=== PATIENT | male | born 1960 | race Caucasian/White ===

== ENCOUNTER → 2021-03-04 12:05 | Outpatient (CLI) | payer BC, SELFPAY ==
--- NOTE | ~2021-03-04 | MR_ITS ---
EXAMINATION: MR lumbar spine wo/w con EXAM DATE: 03/04/2021 13:52 INDICATION: Paresthesia of skin, Low back pain low back pain. TECHNIQUE: Multi-sequential, multiplanar MR images of the lumbar spine were obtained without contrast . Sagittal T1, T2, T2 fat saturation images. Axial T2 weighted images. Axial T1 weighted sequence. Patient was then injected with 18 mL Multihance intravenous contrast and reimaged. Postcontrast axi al and sagittal T1-weighted fat saturation sequences were obtained. Comparison is made to prior exa mination from 03/04/2021. FINDINGS: There is moderate disc disease L2-3 with 2 to 3 mm retrolisthesis. There is 3-4 mm retrolis thesis L5 on S1 with mild disc disease. Posterior and interbody fusion L3-L5. L4 laminectomies. Proba ble L3 foraminotomies. Mild disc disease at L1-2. The conus medullaris terminates at the T12-L1 level and has normal signal intensity and morphology. Paraspinal soft tissue is unremarkable. There are no areas of abnormal enhancement on the post contrast images. Level by level evaluation: T12-L1: Disc does not extend beyond the endplate margin. Facet arthropathy: Mild. Neural foraminal stenosis: No stenosis. Central canal stenosis: No stenosis. L1-L2: There is a mild diffuse disc bulge. Facet arthropathy: Mild bilateral. Neural foraminal stenosis: Mild bilateral. Central canal stenosis: Mild. L2-L3: There is a moderate to large diffuse disc bulge. Superimposed left central protrusion causing severe left lateral recess stenosis. Facet arthropathy: Moderate to severe right, moderate left. Neural foraminal stenosis: Moderate bilateral, left greater than right. Central canal stenosis: Severe, particularly left lateral recess. Redundancy of nerve roots above this level. L3-L4: This level is fused. Facet arthropathy: Fused. Neural foraminal stenosis: No stenosis. Central canal stenosis: No stenosis. L4-L5: This level is fused. Facet arthropathy: Fused. Neural foraminal stenosis: No stenosis. Central canal stenosis: No stenosis. L5-S1: There is a mild to moderate diffuse disc bulge. Facet arthropathy: Moderate. Neural foraminal stenosis: Moderate to severe bilateral. Central canal stenosis: Moderate. IMPRESSION: 1. L2-3 severe central canal stenosis. 2. Moderate to severe L5-S1 neural foraminal stenosis. 3. Intact L3-L5 fusion. Reviewed, dictated and finalized at location B.
[2021-03-04 13:22] LABS: Estimated Glomerular Filt Rate > 60
== END ==
PROVIDERS: PCP Internal Medicine; Visit Provider Internal Medicine
DX: M47.815 Spondylosis without myelopathy or radiculopathy, thoracolumbar region (principal); M48.05 Spinal stenosis, thoracolumbar region; M47.817 Spondylosis without myelopathy or radiculopathy, lumbosacral region; M48.07 Spinal stenosis, lumbosacral region; Z98.1 Arthrodesis status
CPT/HCPCS: 72158; A9577

== ENCOUNTER 2024-11-07 13:10 | Emergency (ER) | payer MEDICARE, BC, SELFPAY ==
[2024-11-07 13:22] VITALS: BP 126/87; PULSE 64; RESP 16; TEMP 36.4; O2SAT 98
--- NOTE | 2024-11-07 13:22 | ED.DENTAL ---
HPI - Dental/Oral General Chief complaint: Dental/Oral Stated complaint: DENTAL PAIN Time Seen by Provider: 11/07/24 13:22 Source: patient, RN notes reviewed and old records reviewed Mode of arrival: ambulatory Limitations: no limitations History of Present Illness HPI Narrative: 64 year old male presents to [facility] care with complaints of dental pain to the left upper molar region and swelling to his face. Patient reports that he has been seeing dentist for this dental problem but pain became worse yesterday and this morning he noted swelling to his left upper face. Patient reports that he took some Ibuprofen but it hasn't helped. Patient has redness of gums and some swelling along #12 and #13 teeth with no obvious abscess noted. MD Complaint: tooth pain Location: Tooth # (12 and 13) Onset (ago): day(s) (3) Duration: constant Severity: severe Severity scale (1-10): 8 Treatment prior to arrival: oral analgesic (Ibuprofen) Related Data Home Medications ?Medication ?Instructions ?Recorded ?Confirmed ?Last Taken ?Type amlodipine 10 mg-benazepril 20 mg 1 cap PO DAILY 01/15/24 11/07/24 Unknown History capsule omega-3 fatty acids 1,000 mg 1,000 mg PO DAILY 01/15/24 11/07/24 Unknown History capsule sertraline 100 mg tablet 100 mg PO DAILY 01/15/24 11/07/24 Unknown History atorvastatin 20 mg tablet 20 mg PO DAILY 01/20/24 11/07/24 Unknown History meloxicam 15 mg tablet 15 mg PO DAILY 01/20/24 11/07/24 Unknown History carvedilol 6.25 mg tablet 6.25 mg PO Q12H 04/15/24 11/07/24 Unknown History Allergies Allergy/AdvReac Type Severity Reaction Status Date / Time No Known Allergies Allergy Verified 11/07/24 13:32 Review of Systems Review of Systems: CONSTITUTIONAL: Denies fever, chills, or sweats. ENT: Denies rhinorrhea, congestion, sore throat, or otalgia. Reports dental pain #12 and #13 teeth with some redness and swelling of gum along teeth and some facial swelling left upper face. CARDIOVASCULAR: Denies chest pain, palpitations, or edema. RESPIRATORY: Denies cough or dyspnea. SKIN: Denies rash or itching. MUSCULOSKELETAL: Denies myalgia. NEUROLOGIC: Denies headache All systems reviewed & are unremarkable except as noted in HPI and below PMFSH Past Medical History Medical History Anxiety and depression Dyslipidemia CLL (chronic lymphocytic leukemia) HTN (hypertension) Surgical History Surgical History History of appendectomy History of back surgery Social History Social History Social History: Patient declined to answer 01/11/2024 [facility] Smoking status: Unknown if ever smoked Alcohol intake: current Current Housing: Decline to Answer Concerned About Future Housing: Decline to Answer Difficulty Paying Gas/Electric Bills: Decline to Answer Difficulty Paying for Meds: Decline to Answer Currently Unemployed: Decline to Answer Education: Decline to Answer Difficulty w/ Childcare or Family Care: Decline to Answer Comments At time of signature, agree with nursing past medical, surgical, social and family history. There is no relevant family history pertinent to the presenting complaint Exam Narrative: GENERAL: Well-appearing, well-nourished, and in no acute distress. HEAD: Normocephalic, atraumatic. EYES: PERRLA and EOMI. ENT: Nares clear, no rhinorrhea or epistaxis. Mucous membranes moist. dental pain to #12,#13 with redness to gum noted and facial swelling, no obvious abscess noted NECK: Supple. no lymphadenopathy CHEST: Clear to auscultation. No respiratory distress. SAO2 98% on room air HEART: Regular rate and rhythm. No murmur heard. Normal peripheral pulses. SKIN: Warm, dry, no rash. NEURO: No focal deficits. Alert and oriented x3. Course Course Emergency Course: Patient is aware of diagnosis, understands and agrees to treatment plan. Anticipatory guidance given. Patient agrees to follow-up as directed and is aware of reasons to seek care at the emergency department. Portions of this record may have been created with voice recognition software Level of Care: Express Care Visit Vital Signs Vital signs: Vital Signs Temperature 36.4 C L 11/07/24 13:22 Pulse Rate 64 11/07/24 13:22 Respiratory Rate 16 11/07/24 13:22 Blood Pressure 126/87 11/07/24 13:22 Pulse Oximetry 98 11/07/24 13:22 Temperature 36.4 C L 11/07/24 13:22 Pulse Rate 64 11/07/24 13:22 Respiratory Rate 16 11/07/24 13:22 Blood Pressure 126/87 11/07/24 13:22 Pulse Oximetry 98 11/07/24 13:22 Reviewed MDM - Dental/Oral MDM Narrative Medical decision making narrative: Patients pain and complaint coupled with physical findings are consistent with dentalgia. There are no focal signs of space occupying lesions that are compromising to the airway; no dysphagia, odynophagia, dysphonia, or dyspnea. No uvular deviation or soft palate edema. Patient is non-toxic appearing. The floor of the mouth is soft with no signs of Jatinder's Angina; no induration below mandible, no neck pain.? Patient is without trismus or drooling and able to swallow secretions.? Patient is felt appropriate for discharge home with dental follow up. Differential Diagnosis Differential diagnosis: Likely dental caries, toothache and other (dentalgia, facial swelling) Medical Records Attestation: I reviewed the patient's medical records. Critical Care Time Critical Care Time Critical Care Time: No Discharge Plan Discharge Clinical Impression: Pain, dental, Left facial swelling Patient Disposition: Home Condition: Stable Instructions: Antibiotic Form, Toothache (ED) Additional Instructions: Avoid temperature extremes May apply heat or ice to the face Gentle brushing and flossing Antibiotic as directed Tylenol for lesser pain Use ibuprofen regularly Use the medication as provided for severe pain--caution each tablet contains 325 mg of Tylenol--the maximum dose of Tylenol is 4000 mg in 24 hours. This medication may cause constipation consider starting a laxative at this time Follow-up with the dentist as soon as possible--see the list provided lidocaine viscous apply to a Q-tip and place along gum to 4 times daily If your symptoms persist, change or worsen significantly before you can contact your personal physician then please, without delay, go to the emergency department for further evaluation. Follow-up with PCP in 7-10 days or sooner if needed Follow up with PCP soon in regards to your blood pressure which is elevated above threshold for referral. Blood pressure above 120/80 may indicate pre-hypertension. 126/87 minimal elevation Patient Language: Persian Prescriptions: New penicillin V potassium 500 mg tablet 500 mg PO Q12H 10 Days Qty: 20 0RF lidocaine HCl [Lidocaine Viscous] 2 % solution 1 applic mucous membrane QID PRN (Reason: pain) Qty: 100 0RF Rx Instructions: apply using Q tip to numb gum area hydrocodone-acetaminophen 7.5-325 mg tablet 1 tablet PO Q6H PRN (Reason: pain) Qty: 10 0RF No Action atorvastatin 20 mg tablet 20 mg PO DAILY meloxicam 15 mg tablet 15 mg PO DAILY carvedilol 6.25 mg tablet 6.25 mg PO Q12H Rx Instructions: must administer with a meal/food spironolactone 25 mg tablet 25 mg PO DAILY Qty: 90 1RF sertraline 100 mg tablet 100 mg PO DAILY omega-3 fatty acids 1,000 mg capsule 1,000 mg PO DAILY amlodipine-benazepril 10-20 mg capsule 1 cap PO DAILY Follow-up/Referrals: Amy Grajeda PAArletteC [Primary Care Provider] - Stand Alone Forms: Work/School Release IP Time of Disposition: 13:44 Quality [place] Coma Scale Eyes: Open Verbal: Oriented and Alert Motor: Follows Commands [place] Coma Total Score: 15
== END 2024-11-07 13:50 | disposition home or self-care (01) ==
PROVIDERS: Emergency Provider Registered Nurse; PCP Physician Assistant Medical
DX: K08.89 Other specified disorders of teeth and supporting structures (principal); R22.0 Localized swelling, mass and lump, head; I10 Essential (primary) hypertension; C91.10 Chronic lymphocytic leukemia of B-cell type not having achieved remission; E78.5 Hyperlipidemia, unspecified; F41.9 Anxiety disorder, unspecified; F32.A Depression, unspecified
CPT/HCPCS: 99213; G0463